=== PATIENT | female | born 1980 | race African-American/Black ===

== ENCOUNTER 2021-07-25 09:20 | Emergency (ER) | payer OTHER, SELFPAY ==
[2021-07-25 09:34] VITALS: BP 177/102; PULSE 95; RESP 20; TEMP 36.2; O2SAT 100
--- NOTE | 2021-07-25 11:29 | ED.URI ---
HPI - URI/Sore Throat General Chief Complaint: Upper Respiratory Infection Stated Complaint: bronchitis - coughing Time Seen by Provider: 07/25/21 10:45 Source: patient Mode of arrival: ambulatory Limitations: no limitations History of Present Illness HPI Narrative: 40 y/o female presents to the ER today for complaints of persistant cough. Her symptoms started 10 days ago with URI symptoms. She felt like she was getting a cold. She was seen by urgent care and given course of abx. She says that her URI symptoms are much better but she has had this persistent non productive cough that is bothersome to her. Denies any wheezing or shortness of breath. No chest pain. No nasal drainage. denies feeling of post nasal drainage. She is very frustrated because she cannot get the cough to resolve. Related Data Allergies Allergy/AdvReac Type Severity Reaction Status Date / Time CUAUHTEMOC MORELAND Allergy Unknown Uncoded 03/29/14 12:32 Cashew Allergy Unknown Uncoded 03/29/14 12:32 Shrimp Allergy Unknown Uncoded 03/29/14 12:32 Review of Systems Constitutional: Constitutional: Denies chills and Denies fever(s) ENT: Denies dysphagia, Denies dizziness and Denies sore throat Cardiovascular: Cardiovascular: Denies chest pain Respiratory: Respiratory: Reports cough, Denies dyspnea and Denies wheezing Gastrointestinal: Gastrointestinal: Denies diarrhea, Denies nausea and Denies vomiting Genitourinary: Genitourinary: Reports no additional female genitourinary complaints Musculoskeletal: Musculoskeletal: Denies back pain Integumentary/Breasts: Skin/Breast: Denies rash Neurologic: Denies dizziness, Denies syncope, Denies headache(s), Denies numbness and Denies weakness Psychiatric: Psychiatric: Denies anxiety and Denies depression Endocrine: Endocrine: Reports no additional endocrine complaints Hematologic/Lymphatic: Hematologic/Lymphatic: Reports no additional hematologic/lymphatic complaints Allergic/Immunologic: Allergic/Immunologic: Reports no additional allergic/immunologic complaints Exam Const: General: no acute distress Orientation/consciousness: patient oriented x3 HENMT: Head: normal to inspection Eyes: Conjunctivae: conjunctivae normal Pupils: Equal, round and reactive pupils present Neck: Neck: normal visual inspection Chest: Chest palpation & inspection: normal inspection of the chest Resp: Effort & Inspection: normal respiratory effort Auscultation: clear to auscultation bilaterally Cardio: Rate: regular rate Rhythm: regular rhythm GI: GI Palp: Yes Soft to palpation, No Tenderness to palpation present (GI) and No Guarding due to palpation present (GI) : General: Yes no CVA tenderness Skin: General skin exam: normal color Neuro: General: patient oriented x3 and moves all extremities Extrem: General: normal to inspection Psych: Mental Status: mental status grossly normal Affect: normal affect Attitude: cooperative Course Vital Signs Vital signs: Vital Signs Temperature 36.2 C L 07/25/21 09:34 Pulse Rate 95 07/25/21 09:34 Respiratory Rate 20 07/25/21 09:34 Blood Pressure 177/102 H 07/25/21 09:34 Pulse Oximetry 100 07/25/21 09:34 Temperature 36.2 C L 07/25/21 09:34 Pulse Rate 95 07/25/21 09:34 Respiratory Rate 20 07/25/21 09:34 Blood Pressure 177/102 H 07/25/21 09:34 Pulse Oximetry 100 07/25/21 09:34 Discharge Plan Discharge Clinical Impression: Post-infectious disorder, Cough, Seasonal allergic reaction Patient Disposition: Home, Self-Care Condition: Stable Instructions: Antibiotic Form, Cold Symptoms (ED) Prescriptions: New loratadine 10 mg tablet 10 mg PO DAILY PRN (Reason: allergic symptoms) Qty: 30 RF: 0 fluticasone propionate [Flonase Allergy Relief] 50 mcg/actuation spray,suspension 2 spray intranasal DAILY Qty: 16 RF: 0 benzonatate 200 mg capsule 200 mg PO TID PRN (Reason: cough) Qty: 14 RF: 0 loratadine 10 mg tablet
== END 2021-07-25 11:44 | disposition home or self-care (01) ==
PROVIDERS: Emergency Provider Nurse Practitioner Family
DX: J30.2 Other seasonal allergic rhinitis (principal); R05.9 Cough, unspecified
CPT/HCPCS: 99283